=== PATIENT | female | born 1960 | race Caucasian/White ===

== ENCOUNTER 2023-12-29 17:08 | Inpatient (IN) | payer OTHER ==
[2023-12-29] MEDS: methylPREDNISolone SOD SUCCI 125 MG/2 ML VIAL IV STA (17:42)
[2023-12-29 18:02] LABS: Basophils % (A) 1 %; Eosinophils % (A) 0 %; HCT 47.5 % (34.0-46.0); HGB 15.3 gm/dL (11.4-16.0); Lymphocytes # (A) 1.5 k/uL (1.0-4.8); Lymphocytes % (A) 22 %; MCHC 32.2 g/dL (31.0-37.0); MCV 86.9 fL (80.0-100.0); Monocytes # (A) 0.4 k/uL (0-1.0); Monocytes % (A) 6 %; Neutrophils # (A) 4.8 k/uL (1.3-7.7); Neutrophils % (A) 69 %; Platelet Count 297 k/uL (150-450); RBC 5.47 m/uL (3.80-5.40); RDW 12.3 % (11.5-15.5); WBC 6.9 k/uL (3.8-10.6)
[2023-12-29] MEDS: IPRATROPIUM 0.5 MG/2.5 ML NEBU INHALATION STA (18:20)
[2023-12-29] MEDS: ALBUTEROL NEBULIZED 2.5 MG/3 ML INHALATION STA (18:20)
--- NOTE | 2023-12-29 18:24 | ED ---
General Adult HPI - General Chief complaint: Shortness of Breath Stated complaint: SOB Time Seen by Provider: 12/29/23 17:25 Source: patient, RN notes reviewed, old records reviewed Mode of arrival: ambulatory Limitations: no limitations - History of Present Illness Initial comments: This is a 63-year-old female who presents to the emergency department complaining of difficulty breathing. Patient states she went to see her primary medical care doctor today and he sent her in because her O2 sat was 88-89. Patient states she has been a smoker for many years but quit 2 weeks ago. Patient denies any chest pain or palpitations. Patient denies any fevers chills. Patient denies any increased cough. Patient denies any back pain. Patient has abdominal pain patient has nausea vomiting diarrhea. Patient denies lightheadedness or dizziness. Patient denies any swelling to the calf or calf tenderness - Related Data Allergies Allergy/AdvReac Type Severity Reaction Status Date / Time No Known Allergies Allergy Verified 12/29/23 17:13 Review of Systems ROS Statement: Those systems with pertinent positive or pertinent negative responses have been documented in the HPI. ROS Other: All systems not noted in ROS Statement are negative. Past Medical History Past Medical History: COPD History of Any Multi-Drug Resistant Organisms: None Reported Past Surgical History: Hysterectomy Smoking Status: Former smoker Past Alcohol Use History: None Reported Past Drug Use History: None Reported General Exam - General Exam Comments Initial Comments: GENERAL: Patient is well-developed and well-nourished. Patient is nontoxic and well- hydrated and is in mild distress. ENT: Neck is soft and supple. No significant lymphadenopathy is noted. Oropharynx is clear. Moist mucous membranes. Neck has full range of motion without eliciting any pain. EYES: The sclera were anicteric and conjunctiva were pink and moist. Extraocular movements were intact and pupils were equal round and reactive to light. Eyelids were unremarkable. PULMONARY: Decreased breath sounds CARDIOVASCULAR: There is a regular rate and rhythm without any murmurs gallops or rubs. ABDOMEN: Soft and nontender with normal bowel sounds. No palpable organomegaly was noted. There is no palpable pulsatile mass. SKIN: Skin is clear with no lesions or rashes and otherwise unremarkable. NEUROLOGIC: Patient is alert and oriented x3. Cranial nerves II through XII are grossly intact. Motor and sensory are also intact. Normal speech, volume and content. Symmetrical smile. MUSCULOSKELETAL: Normal extremities with adequate strength and full range of motion. No lower extremity swelling or edema. No calf tenderness. LYMPHATICS: No significant lymphadenopathy is noted PSYCHIATRIC: Normal psychiatric evaluation. Limitations: no limitations Course Vital Signs 12/29/23 12/29/23 12/29/23 17:09 17:22 17:26 Temperature 97.6 F Pulse Rate 85 78 Respiratory 16 20 Rate Blood Pressure 159/88 123/78 O2 Sat by Pulse 90 L 89 L 90 L Oximetry 12/29/23 12/29/23 12/29/23 18:20 18:26 18:32 Temperature Pulse Rate 73 71 75 Respiratory 18 Rate Blood Pressure 116/77 O2 Sat by Pulse 93 L Oximetry Medical Decision Making - Medical Decision Making EKG is interpreted by myself. EKG shows a sinus rhythm at 66 bpm parables 155 QRS is 85 QT interval 366 QTc is 380. Patient's EKG shows no ST segment elevation or depression. Was pt. sent in by a medical professional or institution (, PA, TITLE OFFICER, urgent care, hospital, or half-way...) When possible be specific @ -Doctor sent the patient to be admitted Did you speak to anyone other than the patient for history (EMS, parent, family, police, friend...)? What history was obtained from this source @ -No Did you review nursing and triage notes (agree or disagree)? Why? @ -I reviewed and agree with nursing and triage notes Were old charts reviewed (outside hosp., previous admission, EMS record, old EKG, old radiological studies, urgent care reports/EKG's, half-way records)? Report findings @ -I reviewed prior charts and prior lab work on this patient Differential Diagnosis (chest pain, altered mental status, abdominal pain women, abdominal pain men, vaginal bleeding, weakness, fever, dyspnea, syncope, headache, dizziness, GI bleed, back pain, seizure, CVA, palpatations, mental health, musculoskeletal)? @ -Differential Dyspnea: Coronary syndrome, arrhythmia, tamponade, asthma, COPD, pulmonary embolism, pneumonia, pneumothorax, pulmonary effusion, anaphylaxis, diabetic ketoacidosis, flailed chest, pulmonary contusion, diaphragmatic rupture, anemia, neuromuscular, this is not meant to be an all-inclusive list. EKG interpreted by me (3pts min.). @ -As above X-rays interpreted by me (1pt min.). @ -Chest x-ray shows no acute abnormality chest x-ray shows signs of COPD CT interpreted by me (1pt min.). @ -None done U/S interpreted by me (1pt. min.). @ -None done What testing was considered but not performed or refused? (CT, X-rays, U/S, labs)? Why? @ -None What meds were considered but not given or refused? Why? @ -None Did you discuss the management of the patient with other professionals (professionals i.e. , PA, TITLE OFFICER, lab, RT, psych nurse, social service agency director, cna gna, teacher, public relations officer, wrapper caser)? Give summary @ -I spoke with [facility] they agreed admit the patient admit the patient wrote admitting orders Was smoking cessation discussed for >3mins.? @ -No Was critical care preformed (if so, how long)? @ -No Were there social determinants of health that impacted care today? How? (Homelessness, low income, unemployed, alcoholism, drug addiction, transportation, low edu. Level, literacy, decrease access to med. care, [facility], rehab)? @ -No Was there de-escalation of care discussed even if they declined (Discuss DNR or withdrawal of care, Hospice)? DNR status @ -No What co-morbidities impacted this encounter? (DM, HTN, Smoking, COPD, CAD, Cancer, CVA, ARF, Chemo, Hep., AIDS, mental health diagnosis, sleep apnea, morbid obesity)? @ -None Was patient admitted / discharged? Hospital course, mention meds given and route, prescriptions, significant lab abnormalities, going to OR and other pertinent info. @ -Patient received a breathing treatment in the emergency department and 1 and route to the hospital. Patient also received steroids. Patient would be removed off of her oxygen and her pulse ox dropped down to 89 to 90%. Patient states she still feels somewhat short of breath. I spoke with [facility] they agreed to admit the patient admit the patient. Undiagnosed new problem with uncertain prognosis? @ -No Drug Therapy requiring intensive monitoring for toxicity (Heparin, Nitro, Insulin, Cardizem)? @ -No Were any procedures done? @ -No Diagnosis/symptom? @ -COPD exacerbation Acute, or Chronic, or Acute on Chronic? @ -Acute Uncomplicated (without systemic symptoms) or Complicated (systemic symptoms)? @ -Complicated Side effects of treatment? @ -No Exacerbation, Progression, or Severe Exacerbation? @ -No Poses a threat to life or bodily function? How? (Chest pain, USA, ID, pneumonia, PE, COPD, DKA, ARF, appy, cholecystitis, CVA, Diverticulitis, Homicidal, Suicidal, threat to staff... and all critical care pts) @ -Yes this can lead to hypoxia and endorgan dysfunction - Lab Data Result diagrams: 12/29/23 17:34 12/29/23 17:34 Lab Results 12/29/23 12/29/23 12/29/23 Range/Units 17:34 17:34 17:34 WBC 6.9 (3.8-10.6) k/uL RBC 5.47 H (3.80-5.40) m/uL Hgb 15.3 (11.4-16.0) gm/dL Hct 47.5 H (34.0-46.0) % MCV 86.9 (80.0-100.0) fL MCH 28.0 (25.0-35.0) pg MCHC 32.2 (31.0-37.0) g/dL RDW 12.3 (11.5-15.5) % Plt Count 297 (150-450) k/uL MPV 7.0 Neutrophils % 69 % Lymphocytes % 22 % Monocytes % 6 % Eosinophils % 0 % Basophils % 1 % Neutrophils # 4.8 (1.3-7.7) k/uL Lymphocytes # 1.5 (1.0-4.8) k/uL Monocytes # 0.4 (0-1.0) k/uL Eosinophils # 0.0 (0-0.7) k/uL Basophils # 0.0 (0-0.2) k/uL PT 10.4 (10.0-12.5) sec INR 0.9 (<1.2) APTT 23.9 (22.0-30.0) sec D-Dimer 0.29 (<0.60) mg/L FEU Sodium 140 (137-145) mmol/L Potassium 4.4 (3.5-5.1) mmol/L Chloride 110 H (98-107) mmol/L Carbon Dioxide 22 (22-30) mmol/L Anion Gap 8 mmol/L BUN 20 H (7-17) mg/dL Creatinine 0.67 (0.52-1.04) mg/dL Est GFR (CKD-EPI)AfAm >90 (>60 ml/min/1.73 sqM) Est GFR (CKD-EPI)NonAf >90 (>60 ml/min/1.73 sqM) Glucose 145 H (74-99) mg/dL Plasma Lactic Acid Dax (0.7-2.0) mmol/L Calcium 9.0 (8.4-10.2) mg/dL Total Bilirubin 0.8 (0.2-1.3) mg/dL AST 54 H (14-36) U/L ALT 75 H (4-34) U/L Alkaline Phosphatase 84 (38-126) U/L Troponin I (0.000-0.034) ng/mL Total Protein 6.5 (6.3-8.2) g/dL Albumin 3.7 (3.5-5.0) g/dL 12/29/23 12/29/23 Range/Units 17:34 17:34 WBC (3.8-10.6) k/uL RBC (3.80-5.40) m/uL Hgb (11.4-16.0) gm/dL Hct (34.0-46.0) % MCV (80.0-100.0) fL MCH (25.0-35.0) pg MCHC (31.0-37.0) g/dL RDW (11.5-15.5) % Plt Count (150-450) k/uL MPV Neutrophils % % Lymphocytes % % Monocytes % % Eosinophils % % Basophils % % Neutrophils # (1.3-7.7) k/uL Lymphocytes # (1.0-4.8) k/uL Monocytes # (0-1.0) k/uL Eosinophils # (0-0.7) k/uL Basophils # (0-0.2) k/uL PT (10.0-12.5) sec INR (<1.2) APTT (22.0-30.0) sec D-Dimer (<0.60) mg/L FEU Sodium (137-145) mmol/L Potassium (3.5-5.1) mmol/L Chloride (98-107) mmol/L Carbon Dioxide (22-30) mmol/L Anion Gap mmol/L BUN (7-17) mg/dL Creatinine (0.52-1.04) mg/dL Est GFR (CKD-EPI)AfAm (>60 ml/min/1.73 sqM) Est GFR (CKD-EPI)NonAf (>60 ml/min/1.73 sqM) Glucose (74-99) mg/dL Plasma Lactic Acid Dax 1.3 (0.7-2.0) mmol/L Calcium (8.4-10.2) mg/dL Total Bilirubin (0.2-1.3) mg/dL AST (14-36) U/L ALT (4-34) U/L Alkaline Phosphatase (38-126) U/L Troponin I <0.012 (0.000-0.034) ng/mL Total Protein (6.3-8.2) g/dL Albumin (3.5-5.0) g/dL Disposition Clinical Impression: Acute exacerbation of chronic obstructive pulmonary disease Disposition: ADMITTED IP TO THIS HOSP Referrals: Eze Oliveros MD [Primary Care Provider] - 1-2 days Time of Disposition: 18:45
[2023-12-29 18:26] LABS: INR 0.9 (<1.2); Partial Thromboplastin Time 23.9 sec (22.0-30.0); Prothrombin Time 10.4 sec (10.0-12.5)
[2023-12-29 18:28] LABS: ALT 75 U/L (4-34); AST 54 U/L (14-36); African American GFR (CKD) >90 (>60 ml/min/1.73 sqM); Albumin 3.7 g/dL (3.5-5.0); Alkaline Phosphatase 84 U/L (38-126); Anion Gap 8 mmol/L; Blood Urea Nitrogen 20 mg/dL (7-17); Carbon Dioxide 22 mmol/L (22-30); Chloride 110 mmol/L (98-107); Glucose 145 mg/dL (74-99); Non-African American GFR(CKD) >90 (>60 ml/min/1.73 sqM); Potassium 4.4 mmol/L (3.5-5.1); Sodium 140 mmol/L (137-145); Total Bilirubin 0.8 mg/dL (0.2-1.3); Total Protein 6.5 g/dL (6.3-8.2)
--- NOTE | 2023-12-29 18:37 | XR ---
EXAMINATION: XR chest 2V: 12/29/2023 6:20 PM CLINICAL INDICATION: difficulty breathing TECHNIQUE: PA and lateral views COMPARISON: CT neck: FINDINGS: The lungs are clear. The pleural spaces are negative. The cardiac silhouette is not enlarged. The remainder of the mediastinal silhouette is unremarkable. Thoracic spine dextrocurvature noted, could be positional. The skeletal structures and soft tissues a re negative for acute findings. IMPRESSION: No acute radiographic process.
[2023-12-29] MEDS ORDERED: NALOXONE 0.4 MG/ML 1 ML VIAL IVP PRN (18:45)
[2023-12-29] MEDS: AMOXIC-POT CLAV 875-125MG 1 EACH TAB PO SCH (20:32)
[2023-12-29] MEDS: IPRATROPIUM-ALBUTEROL 3 ML NEB INHALATION SCH (20:48)
[2023-12-29] MEDS: methylPREDNISolone SOD SUCCI 125 MG/2 ML VIAL IV SCH (23:31)
[2023-12-30 05:31] LABS: Glucose,Whole Blood 240 mg/dL (70-110)
[2023-12-30 11:24] LABS: Glucose,Whole Blood 178 mg/dL (70-110)
--- NOTE | 2023-12-30 11:40 | P.HPIM ---
History of Present Illness 63-year-old pleasant female came in with complaints of shortness of breath. Patient has not not been feeling well for about 2 weeks. Patient is found to be hypoxic with O2 sats of around 88% presently on 4 L of oxygen. Although patient does not have any significant wheezing because of which D-dimer was obtained which was within normal limits. Patient was admitted with systemic steroids inpatient treatments chest x-ray did not show any significant abnormality patient denies any chest pain at this time. Patient was having cough without any sputum production. Patient denies any calf pain. Patient quit smoking few years ago REVIEW OF SYSTEMS: CONSTITUTIONAL: No fever, no malaise, no fatigue. HEENT: No recent visual problems or hearing problems. Denied any sore throat. CARDIOVASCULAR: No chest pain, orthopnea, PND, no palpitations, no syncope. PULMONARY: No shortness of breath, no cough, no hemoptysis. GASTROINTESTINAL: No diarrhea, no nausea, no vomiting, no abdominal pain. NEUROLOGICAL: No headaches, no weakness, no numbness. HEMATOLOGICAL: Denies any bleeding or petechiae. GENITOURINARY: Denies any burning micturition, frequency, or urgency. MUSCULOSKELETAL/RHEUMATOLOGICAL: Denies any joint pain, swelling, or any muscle pain. ENDOCRINE: Denies any polyuria or polydipsia. The rest of the 14-point review of systems is negative. PHYSICAL EXAMINATION: GENERAL: The patient is alert and oriented x3, not in any acute distress. Well developed, well nourished. HEENT: Pupils are round and equally reacting to light. EOMI. No scleral icterus. No conjunctival pallor. Normocephalic, atraumatic. No pharyngeal erythema. No thyromegaly. CARDIOVASCULAR: S1 and S2 present. No murmurs, rubs, or gallops. PULMONARY: Fairly good air entry to bilateral lung crum without any significant wheezing ABDOMEN: Soft, nontender, nondistended, normoactive bowel sounds. No palpable organomegaly. MUSCULOSKELETAL: No joint swelling or deformity. EXTREMITIES: No cyanosis, clubbing, or pedal edema. NEUROLOGICAL: Gross neurological examination did not reveal any focal deficits. SKIN: No rashes. Assessment and plan -Acute hypoxic respiratory failure most probably secondary to COPD exacerbation. Continue systemic steroids inpatient treatments rule out pulmonary embolism with D-dimer monitor. -Possible bronchitis for which patient is on antibiotics no evidence of pneumonia GI prophylaxis Pepcid DVT prophylaxis: Lovenox Past Medical History Past Medical History: COPD History of Any Multi-Drug Resistant Organisms: None Reported Past Surgical History: Hysterectomy Additional Past Surgical History / Comment(s): bladder prolapse Past Anesthesia/Blood Transfusion Reactions: No Reported Reaction Smoking Status: Former smoker Medications and Allergies Home Medications Medication Instructions Recorded Confirmed Type No Known Home Medications 12/29/23 12/29/23 History Allergies Allergy/AdvReac Type Severity Reaction Status Date / Time No Known Allergies Allergy Verified 12/29/23 19:44 Physical Exam Vitals: Vital Signs Temp Pulse Pulse Resp BP BP Pulse Ox 12/30/23 11:07 20 12/30/23 09:14 70 12/30/23 08:57 68 94 L 12/30/23 07:57 18 85 L 12/30/23 07:47 98.8 F 80 19 163/92 88 L 12/30/23 02:00 98.0 F 71 20 126/72 90 L 12/29/23 23:00 98.1 F 95 20 168/90 90 L 12/29/23 22:51 88 16 121/79 91 L 12/29/23 21:45 75 16 137/81 90 L 12/29/23 21:14 91 L 12/29/23 20:56 95 12/29/23 20:48 82 12/29/23 20:34 98.1 F 12/29/23 20:02 78 16 137/99 93 L 12/29/23 19:27 76 16 146/82 92 L 12/29/23 18:32 75 12/29/23 18:26 71 18 116/77 93 L 12/29/23 18:20 73 12/29/23 17:26 90 L 12/29/23 17:22 78 20 123/78 89 L 12/29/23 17:09 97.6 F 85 16 159/88 90 L Intake and Output 12/29/23 12/30/23 12/30/23 22:59 06:59 14:59 Intake Total 1100 250 Balance 1100 250 Intake: Oral 1100 250 Other: Voiding Method Toilet Toilet # Voids 4 Weight 63.957 kg 63.957 kg Results CBC & Chem 7: 12/29/23 17:34 12/29/23 17:34 Labs: Abnormal Lab Results - Last 24 Hours (Table) 12/29/23 12/29/23 12/29/23 Range/Units 17:34 17:34 18:57 RBC 5.47 H (3.80-5.40) m/uL Hct 47.5 H (34.0-46.0) % Chloride 110 H (98-107) mmol/L BUN 20 H (7-17) mg/dL Glucose 145 H (74-99) mg/dL POC Glucose (mg/dL) (70-110) mg/dL AST 54 H (14-36) U/L ALT 75 H (4-34) U/L Influenza Type A (PCR) Detected A (Not Detectd) 12/30/23 12/30/23 Range/Units 05:26 11:23 RBC (3.80-5.40) m/uL Hct (34.0-46.0) % Chloride (98-107) mmol/L BUN (7-17) mg/dL Glucose (74-99) mg/dL POC Glucose (mg/dL) 240 H 178 H (70-110) mg/dL AST (14-36) U/L ALT (4-34) U/L Influenza Type A (PCR) (Not Detectd) Thrombosis Risk Factor Assmnt - Choose All That Apply Each Factor Represents 1 point: Abnormal pulmonary function (COPD) Each Risk Factor Represents 2 Points: Age 61-74 years Thrombosis Risk Factor Assessment Total Risk Factor Score: 3 Thrombosis Risk Factor Assessment Level: Moderate Risk
[2023-12-30] MEDS: FAMOTIDINE 20 MG TAB PO SCH (12:25)
[2023-12-30] MEDS: methylPREDNISolone SOD SUCCI 40 MG/ML 1 ML VIAL IV SCH (20:51)
[2023-12-31] MEDS: ENOXAPARIN 40 MG/0.4 ML SYRINGE SQ SCH (09:21)
[2023-12-31] MEDS: SYMBICORT 160-4.5 MCG INHALER INHALATION SCH (15:41)
[2023-12-31] MEDS: methylPREDNISolone SOD SUCCI 125 MG/2 ML VIAL IV SCH (17:12)
--- NOTE | 2023-12-31 17:28 | PN ---
PROGRESS NOTE DATE OF SERVICE: 12/31/2023 SUBJECTIVE: This is a 63-year-old woman who was admitted with shortness of breath and also acute flu infection and COPD exacerbation, she was closely monitored. No chest pain. No palpitations. No fever. OBJECTIVE: VITAL SIGNS: Pulse is 70. The blood pressure is 140/88, respirations 20. HEENT: Conjunctivae normal. NECK: No JVD. CARDIOVASCULAR: S1, S2. RESPIRATIONS: Bases. Few scattered rhonchi and crackles. ABDOMEN: Soft. NERVOUS SYSTEM: No focal deficit. LABORATORY DATA: Reviewed. ASSESSMENT: 1. Chronic obstructive pulmonary disease acute exacerbation. 2. Acute influenza A. 3. Acute tracheobronchitis. 4. History of hysterectomy. RECOMMENDATIONS AND DISCUSSION: This is a 63-year-old woman who presented with multiple complex medical issues, we will monitor the patient closely. Continue the current medications. Continue the antibiotics. I would recommend intensive bronchodilator treatment and bronchodilators. Pulmonary consultation. Guarded prognosis. Further recommendations to follow. See orders for further details. D-dimer has been checked and it is negative. MMODL / IJN: [id number] / [id number]
[2024-01-01 07:36] LABS: Basophils % (A) 0 %; Eosinophils % (A) 0 %; HCT 45.2 % (34.0-46.0); HGB 14.3 gm/dL (11.4-16.0); Lymphocytes % (A) 6 %; MCH 27.9 pg (25.0-35.0); MCHC 31.6 g/dL (31.0-37.0); MCV 88.2 fL (80.0-100.0); Monocytes # (A) 0.5 k/uL (0-1.0); Monocytes % (A) 3 %; Neutrophils # (A) 14.6 k/uL (1.3-7.7); Neutrophils % (A) 90 %; Platelet Count 412 k/uL (150-450); RBC 5.13 m/uL (3.80-5.40); RDW 12.8 % (11.5-15.5); WBC 16.2 k/uL (3.8-10.6)
[2024-01-01 07:46] LABS: African American GFR (CKD) >90 (>60 ml/min/1.73 sqM); Anion Gap 10 mmol/L; Blood Urea Nitrogen 23 mg/dL (7-17); Calcium 9.1 mg/dL (8.4-10.2); Carbon Dioxide 18 mmol/L (22-30); Chloride 109 mmol/L (98-107); Glucose 153 mg/dL (74-99); Non-African American GFR(CKD) >90 (>60 ml/min/1.73 sqM); Potassium 4.6 mmol/L (3.5-5.1); Sodium 137 mmol/L (137-145)
--- NOTE | 2024-01-01 11:52 | CT ---
EXAMINATION TYPE: CT angio chest DATE OF EXAM: 01/01/2024 11:40 AM COMPARISON: HISTORY: Acute hypoxic respiratory failure CT DLP: 294.2 mGycm Automated exposure control for dose reduction was used. CONTRAST: CTA scan of the thorax is performed with IV Contrast, patient injected with 65ml mL of Isovue 370, pu lmonary embolism protocol. 3-D postprocessing was performed.. FINDINGS: The lungs are clear of abnormal consolidative/airspace density or abnormal interstitial density. There is no pleural effusion, pleural thickening or pneumothorax. There is no mediastinal, hilar or axillary adenopathy. There is a tiny filling defect suspected in one of the subsegmental branches in the left lower lobe m edially possibly indicating a tiny embolus. No other filling defects are seen within the pulmonary ar [place] circulation. Limited scanning through the upper abdomen reveals no gross abnormality. No focal osseous lesions are seen. IMPRESSION: Tiny focal pulmonary embolus in one of the subsegmental branches in the left lower lobe medially with no other significant amount is seen.
--- NOTE | 2024-01-01 12:56 | P.CNPUL ---
History of Present Illness Consult date: 01/01/24 Reason for consult: dyspnea History of present illness: This is a 63-year-old female patient presented with worsening shortness of breath. The patient's has been symptomatic for almost 2 weeks. She was having increased dyspnea cough chest congestion chest tightness and wheezing. She has not seek any medical attention. She came into the hospital and she was found to be bronchospastic and wheezy. Furthermore, the patient tested positive for influenza A. She was quite hypoxic at time of admission and currently the patient is on 8 L of oxygen by nasal cannula with a pulse ox of 94%. I saw the patient on the medical floor and I was quite suspicious of her significant hypoxemia. The patient was given a CTA of the chest and the patient was found to have tiny focal pulmonary emboli and one of the subsegmental branches of the left lower lobe. The lungs are essentially clear. There was no consolidation or airspace disease. No mediastinal lymphadenopathy.The patient was started on anticoagulation with Eliquis. Meanwhile, she is still being treated with bronchodilators and steroids. Influenza a was still positive. Procalcitonin level was negative. Renal function was stable. White cell count was at 16.2 with hemoglobin of 14.3. The patient is a chronic smoker. Review of Systems CONSTITUTIONAL: No fever, no malaise, no fatigue. HEENT: No recent visual problems or hearing problems. Denied any sore throat. CARDIOVASCULAR: No chest pain, orthopnea, PND, no palpitations, no syncope. PULMONARY: No shortness of breath, no cough, no hemoptysis. GASTROINTESTINAL: No diarrhea, no nausea, no vomiting, no abdominal pain. NEUROLOGICAL: No headaches, no weakness, no numbness. HEMATOLOGICAL: Denies any bleeding or petechiae. GENITOURINARY: Denies any burning micturition, frequency, or urgency. MUSCULOSKELETAL/RHEUMATOLOGICAL: Denies any joint pain, swelling, or any muscle pain. ENDOCRINE: Denies any polyuria or polydipsia. The rest of the 14-point review of systems is negative Past Medical History Past Medical History: COPD History of Any Multi-Drug Resistant Organisms: None Reported Past Surgical History: Hysterectomy Additional Past Surgical History / Comment(s): bladder prolapse Past Anesthesia/Blood Transfusion Reactions: No Reported Reaction Smoking Status: Former smoker Medications and Allergies Home Medications Medication Instructions Recorded Confirmed Type No Known Home Medications 12/29/23 12/29/23 History Allergies Allergy/AdvReac Type Severity Reaction Status Date / Time No Known Allergies Allergy Verified 12/29/23 19:44 Physical Exam Vitals: Vital Signs Temp Pulse Pulse Resp BP Pulse Ox 01/01/24 08:28 91 L 01/01/24 07:24 98.0 F 67 18 156/84 94 L 01/01/24 01:13 97.6 F 79 15 156/86 91 L 12/31/23 20:00 98.0 F 74 16 132/74 89 L 12/31/23 16:32 74 12/31/23 16:17 70 12/31/23 13:57 97.8 F 74 19 154/82 90 L 12/31/23 12:33 72 12/31/23 12:20 70 Intake and Output 12/31/23 01/01/24 01/01/24 22:59 06:59 14:59 Output Total 1400 Balance -1400 Output: Urine 1400 Other: Voiding Method Toilet Toilet # Voids 1 GENERAL: The patient is alert and oriented x3, not in any acute distress. Well developed, well nourished. The patient is currently on 8 L of O2 nasal cannula. Breathing is nonlabored. Head exam was generally normal. There was no scleral icterus or corneal arcus. Mucous membranes were moist. HEENT: Pupils are round and equally reacting to light. EOMI. No scleral icterus. No conjunctival pallor. Normocephalic, atraumatic. No pharyngeal erythema. No thyromegaly. CARDIOVASCULAR: S1 and S2 present. No murmurs, rubs, or gallops. PULMONARY: Fairly good air entry to bilateral lung crum without any significant wheezing ABDOMEN: Soft, nontender, nondistended, normoactive bowel sounds. No palpable organomegaly. MUSCULOSKELETAL: No joint swelling or deformity. EXTREMITIES: No cyanosis, clubbing, or pedal edema. NEUROLOGICAL: Gross neurological examination did not reveal any focal deficits. Examination of the skin revealed no evidence of significant rashes, suspicious appearing nevi or other concerning lesions. Results - Laboratory Findings CBC and BMP: 01/01/24 06:55 01/01/24 06:55 PT/INR, D-dimer PT 10.4 sec (10.0-12.5) 12/29/23 17:34 INR 0.9 (<1.2) 12/29/23 17:34 D-Dimer 0.29 mg/L FEU (<0.60) 12/29/23 17:34 Abnormal lab findings: Abnormal Labs 12/29/23 12/29/23 12/29/23 17:34 17:34 18:57 WBC RBC 5.47 H Hct 47.5 H Neutrophils # Chloride 110 H Carbon Dioxide BUN 20 H Glucose 145 H POC Glucose (mg/dL) AST 54 H ALT 75 H Influenza Type A (PCR) Detected A 12/30/23 12/30/23 01/01/24 05:26 11:23 06:55 WBC 16.2 H RBC Hct Neutrophils # 14.6 H Chloride Carbon Dioxide BUN Glucose POC Glucose (mg/dL) 240 H 178 H AST ALT Influenza Type A (PCR) 01/01/24 06:55 WBC RBC Hct Neutrophils # Chloride 109 H Carbon Dioxide 18 L BUN 23 H Glucose 153 H POC Glucose (mg/dL) AST ALT Influenza Type A (PCR) - Diagnostic Findings Chest x-ray: image reviewed CT scan - chest: image reviewed Assessment and Plan Plan: Acute hypoxemic respiratory failure, multifactorial. The patient is currently on 8 L of oxygen by nasal cannula. Predominantly due to COPD exacerbation. There may be also component of pulmonary embolism as the patient was found to have a filling defect in the subsegmental branches of the left lower lobe. Acute COPD exacerbation Acute pulmonary embolism with a suspicious left lower lobe pulmonary artery devon ling defect Acute/subacute influenza A infection Shortness of breath secondary to above History of smoking Plan Continue bronchodilators and steroids Start the patient on anticoagulation with Eliquis 10 mg p.o. twice a day Obtain Doppler of the lower extremities No need for Tamiflu as the patient is outside the window for treatment of influenza A Smoking cessation counseling Will continue to follow
[2024-01-01] MEDS: APIXABAN 5 MG TAB PO SCH (14:06)
--- NOTE | 2024-01-01 15:31 | US ---
EXAMINATION TYPE: US venous doppler duplex LE BI DATE OF EXAM: 01/01/2024 12:57 PM COMPARISON: CTA 01/01/24 CLINICAL INDICATION: Female, 63 years old with history of Pulmonary embolism; PE on same day CTA, talha rtness of breath SIDE PERFORMED: Bilateral TECHNIQUE: The lower extremity deep venous system is examined utilizing real time linear array sonog shasta with graded compression, doppler sonography and color-flow sonography. VESSELS IMAGED: Common Femoral Vein Deep Femoral Vein Greater Saphenous Vein * Femoral Vein Popliteal Vein Small Saphenous Vein * Proximal Calf Veins (* superficial vessels) Right Leg: Negative for DVT Grayscale, color doppler, spectral doppler imaging performed of the deep veins of the lower extremiti es. There is normal flow, compressibility, vascular waveforms. IMPRESSION: No evidence of deep venous thrombosis
[2024-01-01] MEDS: FORMOTEROL FUMARATE 20 MCG/2 ML NEBU INHALATION SCH (16:10)
[2024-01-01] MEDS: BUDESONIDE 1 MG/2 ML NEBU INHALATION SCH (16:10)
--- NOTE | 2024-01-01 20:54 | P.CONS ---
History of Present Illness - Reason for Consult Consult date: 01/01/24 flu Requesting physician: Blas Mckinley - Chief Complaint Increasing shortness of breath x few days - History of Present Illness Patient is a 63-year-old female past medical history infection for COPD presenting to the hospital for evaluation of increasing shortness of breath patient symptom has been going on for the last few days and has been complaining of shortness of breath on minimal exertion even at rest patient denies having any chest pain did have very minimal cough no sputum production some runny nose but no other URI symptoms and denies high-grade fever patient apparently was eval by her primary care physician and the patient was noted to be hypoxic with O2 sats of 8829% and the patient was advised to go to the hospital on presentation to the hospital patient was afebrile and no fever have recorded subsequently patient was nontachycardic or hypotensive patient was hypoxic is currently on a 9 L high flow oxygen patient did have a white count of 6.9 on admission which is up to 16.2 today creatinine was normal and liver enzymes mildly elevated tested positive for influenza A patient did have a chest x-ray no acute pulmonary process CT angiogram of the chest focal pulm embolism in one of the subsegmental branches in the left lower lobe patient has been started on Solu-Medrol Rocephin Eliquis infectious was consulted for further management Review of Systems Positive point and negatives has been mentioned in the HPI, complete review of systems was performed and all other systems are negative Past Medical History Past Medical History: COPD History of Any Multi-Drug Resistant Organisms: None Reported Past Surgical History: Hysterectomy Additional Past Surgical History / Comment(s): bladder prolapse Past Anesthesia/Blood Transfusion Reactions: No Reported Reaction Smoking Status: Former smoker Medications and Allergies Home Medications Medication Instructions Recorded Confirmed Type Albuterol Inhaler [Ventolin Hfa 2 puff INHALATION Q6H PRN #1 each 01/05/24 Rx Inhaler] Apixaban Initiation Dose--VTE See Taper PO BID 30 Days #74 tab 01/05/24 Rx [Eliquis Initiation Dosing for VTE Treatment] Budesonide-Formot 160-4.5 Mcg 2 puff INHALATION BID #10.2 gm 01/05/24 Rx [Symbicort 160-4.5 Mcg Inhaler] Famotidine [Pepcid] 20 mg PO BID 15 Days #30 tab 01/05/24 Rx Ipratropium-Albuterol Nebulize 3 ml INHALATION RT-QID #100 each 01/05/24 Rx [Duoneb 0.5 mg-3 mg/3 ml Soln] Oseltamivir [Tamiflu] 75 mg PO Q12HR 1 Days #2 cap 01/05/24 Rx amLODIPine [Norvasc] 10 mg PO DAILY #30 tab 01/05/24 Rx predniSONE 10 mg PO DIRECTED #30 tab 01/05/24 Rx Allergies Allergy/AdvReac Type Severity Reaction Status Date / Time No Known Allergies Allergy Verified 12/29/23 19:44 Physical Exam Vitals: Vital Signs Temp Pulse Pulse Resp BP Pulse Ox 01/01/24 13:40 97.9 F 81 17 128/79 93 L 01/01/24 12:46 76 01/01/24 12:38 75 01/01/24 08:28 91 L 01/01/24 07:24 98.0 F 67 18 156/84 94 L 01/01/24 01:13 97.6 F 79 15 156/86 91 L 12/31/23 20:00 98.0 F 74 16 132/74 89 L 12/31/23 16:32 74 12/31/23 16:17 70 Intake and Output 12/31/23 01/01/24 01/01/24 22:59 06:59 14:59 Output Total 1400 Balance -1400 Output: Urine 1400 Other: Voiding Method Toilet Toilet # Voids 1 GENERAL DESCRIPTION: Middle-aged female lying in bed, no distress. No tachypnea or accessory muscle of respiration use. HEENT: Shows Pallor , no scleral icterus. Oral mucous membrane is dry. No pharyngeal erythema or thrush NECK: Trachea central, no thyromegaly. LUNGS: Unlabored breathing. Decreased intensity breath sounds no significant wheeze. HEART: S1, S2, regular rate and rhythm. No loud murmur ABDOMEN: Soft, no tenderness , guarding or rigidity, no organomegaly EXTREMITIES: No edema of feet. SKIN: No rash, no masses palpable. NEUROLOGICAL: The patient is awake, alert, oriented x3, mood and affect normal. Results CBC & Chem 7: 01/04/24 08:31 01/04/24 08:31 Labs: Abnormal Lab Results - Last 24 Hours (Table) 01/01/24 01/01/24 Range/Units 06:55 06:55 WBC 16.2 H (3.8-10.6) k/uL Neutrophils # 14.6 H (1.3-7.7) k/uL Chloride 109 H (98-107) mmol/L Carbon Dioxide 18 L (22-30) mmol/L BUN 23 H (7-17) mg/dL Glucose 153 H (74-99) mg/dL Assessment and Plan (1) Influenza Status: Acute Code(s): J11.1 - FLU DUE TO UNIDENTIFIED INFLUENZA VIRUS W OTH RESP MANIFEST SNOMED Code(s): 4658068 (2) Leukocytosis Status: Acute Code(s): D72.829 - ELEVATED WHITE BLOOD CELL COUNT, UNSPECIFIED SNOMED Code(s): 590166724 Plan: 1patient presented to hospital with increasing shortness of breath etiology is multifactorial in this patient has been diagnosed with a PE possible COPD exacerbation with bronchitis chest x-ray and CT angiogram of the chest did not show any acute infiltrate and procalcitonin is normal clinic suspicion is low for secondary bacterial pneumonia, antibiotic can be safely discontinued 2-patient with leukocytosis more likely steroid related as the patient had normal white count on admission 3-patient influenza more likely playing a part in some of her symptomatology as the patient is being admitted to the hospital should be treated irrespective of the duration of her symptoms and will start the patient on Tamiflu 75 mg p.o. twice a day for 5 days We will follow on clinical condition and cultures to further adjust medication if needed Thank you for this consultation we will follow the patient along with you Dictation was produced using [employer] dictation software. please excuse any grammatical, word or spelling errors. Time with Patient: Greater than 30
[2024-01-01] MEDS: OSELTAMIVIR 75 MG CAP PO SCH (21:32)
--- NOTE | 2024-01-01 23:28 | PN ---
PROGRESS NOTE DATE OF SERVICE: 01/01/2024 SUBJECTIVE: This is a 63-year-old woman was admitted with COPD exacerbation, also had acute influenza A. The patient also had increasing shortness of breath, and CT angio showed tiny focal pulmonary embolism on subsegmental branches in the left lobe medially with no other abnormalities. The patient is being closely monitored at this time. PAST MEDICAL HISTORY: Reviewed. REVIEW OF SYSTEMS: 14-point review is negative as mentioned. CURRENT MEDICATIONS: Reviewed. Include Tamiflu. PHYSICAL EXAMINATION: VITAL SIGNS: Pulse is 81, blood pressure n HEENT: Conjunctivae normal. NECK: No jugular venous distention. No carotid bruits. RESPIRATIONS: Bilateral few scattered rhonchi. ABDOMEN: Soft. NERVOUS SYSTEM: Nonfocal. LABORATORY DATA: Glucose 153, rest of labs are noted. ASSESSMENT: 1. Chronic obstructive pulmonary disease exacerbation with severe hypoxemia, acute hypoxic respiratory failure. 2. Acute pulmonary embolism, right lower lobe. 3. Acute influenza A. 4. Acute tracheobronchitis. 5. History OF hysterectomy. RECOMMENDATION: Continue current management, continue symptomatic treatment. Start IV heparin. Otherwise continue with steroids and bronchodilators. The patient will start Eliquis. Otherwise, continue to monitor. Continue with antibiotics. Will change the antibiotics to intravenous route, and I will also get Dr. Shipman for consult with influenza A. Prognosis guarded. Further recommendations to follow. MMODL / IJN: [id number] / MTDD
[2024-01-01] MEDS: ZOLPIDEM 5 MG TAB PO PRN (23:52)
[2024-01-02 08:27] LABS: Basophils # (A) 0.01 X 10*3/uL (0.00-0.10); Basophils % (A) 0.1 %; Eosinophils # (A) 0 X 10*3/uL (0.04-0.35); Eosinophils % (A) 0 %; HCT 41.9 % (37.2-46.3); HGB 13.8 g/dL (12.0-15.0); Lymphocytes # (A) 0.71 X 10*3/uL (0.90-5.00); MCH 27.8 pg (27.0-32.0); MCHC 32.9 g/dL (32.0-37.0); MCV 84.5 FL (80.0-97.0); Monocytes # (A) 0.48 X 10*3/uL (0.20-1.00); NRBC Per 100 WBC 0 X 10*3/uL (0.00-0.01); Neutrophils # (A) 10.59 X 10*3/uL (1.80-7.70); Neutrophils % (A) 89.1 %; Platelet Count 381 X 10*3/uL (140-440); RBC 4.96 X 10*6/uL (4.10-5.20); RDW 13.3 % (11.5-14.5); WBC 11.89 X 10*3/uL (4.50-10.00)
[2024-01-02 08:44] LABS: Calcium 8.8 mg/dL (8.7-10.3); Carbon Dioxide 19.8 mmol/L (21.6-31.8); Chloride 107 mmol/L (96-109); Glucose 177 mg/dL (70-110); Potassium 4.4 mmol/L (3.5-5.5); Sodium 138 mmol/L (135-145)
--- NOTE | 2024-01-02 12:20 | CA ---
Transthoracic Echo Report Name: Elizabeth Monroe Age: 63 Gender: F : 1960 Exam Date: 01/02/2024 08:22 Exam Location: [facility] Ht (in): 66 Wt (lb): 141 Ordering Physician: Blas Mckinley MD Attending/Referring Phys: General Practitioner Mala Gomez RDCS Procedure CPT: Indications: PE Cardiac Hx: Technical Quality: Contrast 1: Definity Total Dose (mL): 2 Contrast 2: Total Dose (mL): MEASUREMENTS (Male / Female) Normal Values 2D ECHO LV Diastolic Diameter PLAX 4.4 cm 4.2 - 5.9 / 3.9 - 5.3 cm LV Systolic Diameter PLAX 2.6 cm IVS Diastolic Thickness 0.9 cm 0.6 - 1.0 / 0.6 - 0.9 cm LVPW Diastolic Thickness 1.0 cm 0.6 - 1.0 / 0.6 - 0.9 cm LV Relative Wall Thickness 0.4 LVOT Diameter 2.0 cm Aortic Root Diameter 3.3 cm LA Systolic Diameter LX 3.6 cm 3.0 - 4.0 / 2.7 - 3.8 cm LA Volume 47.0 cm??? 18 - 58 / 22 - 52 cm??? LA Volume Index 27.2 cm???/m??? 16 - 28 cm???/m??? DOPPLER AV Peak Velocity 170.7 cm/s AV Peak Gradient 11.7 mmHg AV Mean Velocity 107.9 cm/s AV Mean Gradient 5.5 mmHg AV Velocity Time Integral 27.9 cm LVOT Peak Velocity 157.9 cm/s LVOT Peak Gradient 10.0 mmHg LVOT Velocity Time Integral 26.7 cm LVOT Stroke Volume 88.1 cm??? LVOT Stroke Volume Index 51.1 ml/m??? LVOT Cardiac Index 4075.3 cm???/min???m??? AV Area Cont Eq vti 3.2 cm??? AV Area Cont Eq pk 3.1 cm??? Mitral E Point Velocity 81.5 cm/s Mitral A Point Velocity 90.7 cm/s Mitral E to A Ratio 0.9 MV Deceleration Time 226.3 ms MV E' Velocity 9.2 cm/s Mitral E to MV E' Ratio 8.8 PV Peak Velocity 81.9 cm/s PV Peak Gradient 2.7 mmHg FINDINGS Left Ventricle Left ventricular ejection fraction is estimated at 55-60 %. Normal left ventricular wall motion. No obvious regional wall motion abnormalities.left ventricular cavity size normal. Right Ventricle Normal right ventricular size and function. Unable to estimate the right ventricular systolic pressure. Right Atrium Normal right atrial size. Left Atrium Normal left atrial size. Mitral Valve No mitral stenosis, regurgitation or prolapse. Aortic Valve No aortic valve stenosis or regurgitation.trileaflet aortic valve. Tricuspid Valve No tricuspid regurgitation.structurally normal tricuspid valve. Pulmonic Valve Pulmonic valve not well visualized. Pericardium No pericardial effusion. Aorta Normal size aortic root. CONCLUSIONS Technically difficult study. Definity ECHO contrast used for improved visualization of the endocardial borders (inadequate visualization of two or more contiguous segments). Normal left ventricle size and systolic function Limited Doppler study with no significant abnormalities Previewed by: Dr. Sydnie Avalos MD (Electronically Signed) Final Date: 02 January 2024 12:20
--- NOTE | 2024-01-02 13:07 | XR ---
EXAMINATION TYPE: XR chest 1V portable DATE OF EXAM: 01/02/2024 COMPARISON: 12/29/2023 HISTORY: Cough TECHNIQUE: Single frontal view of the chest is obtained. FINDINGS: There is no focal air space opacity, pleural effusion, or pneumothorax seen. The cardiac silhouette size is within normal limits. The osseous structures are intact. Elevated left hemidiaph ragm with findings suggestive of COPD. Diffuse osteopenia. Partial eventration right hemidiaphragm. IMPRESSION: No acute process.
--- NOTE | 2024-01-02 13:43 | PN ---
PROGRESS NOTE DATE OF SERVICE: 01/02/2024 This is a 63-year-old woman, who was admitted with COPD exacerbation and severe hypoxemia. The CT angio showed pulmonary embolism. Patient is on Eliquis as well. The patient is still requiring high-flow oxygen 91% on 8 L. A 2D echo with Doppler which was reviewed personally by me reported by Cardiology showed normal LV size and systolic function. RV size was normal. PAST MEDICAL HISTORY: Reviewed. REVIEW OF SYSTEMS: A 14-point review of systems is negative except as mentioned above. CURRENT MEDICATIONS: Reviewed, include Eliquis, dose and rest of medications reviewed. PHYSICAL EXAMINATION: VITAL SIGNS: Pulse is 80, blood pressure is 130/76, respirations 18. CHEST: Few scattered rhonchi. ABDOMEN: Soft. NERVOUS SYSTEM: Nonfocal. LABORATORY DATA: Reviewed. Hemoglobin 11.8. Rest of the labs are noted. ASSESSMENT: 1. Chronic obstructive pulmonary disease, acute exacerbation with severe hypoxemia with acute hypoxic respiratory failure. 2. Acute right pulmonary embolism, on Eliquis. 3. Acute influenza A. 4. Acute tracheobronchitis. 5. History of hysterectomy. RECOMMENDATION: Continue current management, continue symptomatic treatment. Otherwise, continue the bronchodilators. Procalcitonin is only 0.2. I would continue the antivirals and rest of the medications. Closely follow with Infectious Disease. Incentive spirometry. Guarded prognosis. Further recommendations to follow. See orders for details. MMODL / IJN: [id number] /
--- NOTE | 2024-01-02 16:26 | P.PN ---
Subjective Progress Note Date: 01/02/24 This is a 63-year-old female patient presented with worsening shortness of breath. The patient's has been symptomatic for almost 2 weeks. She was having increased dyspnea cough chest congestion chest tightness and wheezing. She has not seek any medical attention. She came into the hospital and she was found to be bronchospastic and wheezy. Furthermore, the patient tested positive for influenza A. She was quite hypoxic at time of admission and currently the patient is on 8 L of oxygen by nasal cannula with a pulse ox of 94%. I saw the patient on the medical floor and I was quite suspicious of her significant hypoxemia. The patient was given a CTA of the chest and the patient was found to have tiny focal pulmonary emboli and one of the subsegmental branches of the left lower lobe. The lungs are essentially clear. There was no consolidation or airspace disease. No mediastinal lymphadenopathy.The patient was started on anticoagulation with Eliquis. Meanwhile, she is still being treated with bronchodilators and steroids. Influenza a was still positive. Procalcitonin level was negative. Renal function was stable. White cell count was at 16.2 with hemoglobin of 14.3. The patient is a chronic smoker. The patient is seen today January 02, 2024 in follow-up on the regular medical floor. She is currently resting in bed. Awake and alert in no acute distress. She is still quite fatigued. Dyspneic with conversation. Dyspneic with minimal exertion. She is requiring 9 L high flow nasal cannula to maintain O2 saturation in the 90s. She is continued on Tamiflu. Her procalcitonin was negative at 0.02. She has been initiated on Eliquis for her tiny focal pulmonary embolus in the subsegmental branches of the left lower lobe. Dopplers revealed no evidence of DVT. Echocardiogram reveals preserved left ventricular systolic function with ejection fraction 55 to 60% normal right ventricular size and function. Follow-up chest x-ray reveals evidence of COPD but no acute p rocess. She remains on DuoNeb inhalations, Solu-Medrol, Pulmicort and Perforomist inhalations. White count 11.8. Hemoglobin 13.8. Sodium 138. Potassium 4.4. Bicarb 20. BUN 24. Creatinine 0.8. Objective - Vital Signs Vital signs: Vital Signs Temp 97.7 F 01/02/24 14:00 Pulse 72 01/02/24 15:38 Resp 19 01/02/24 14:00 BP 149/89 01/02/24 14:00 Pulse Ox 94 L 01/02/24 14:00 FiO2 Intake & Output 01/01/24 01/02/24 01/02/24 18:59 06:59 18:59 Intake Total 350 Output Total 1400 Balance -1050 Intake: Oral 350 Output: Urine 1400 Other: Voiding Method Toilet Toilet Toilet # Voids 3 1 1 - Exam GENERAL EXAM: Alert, 63-year-old female on 9 L high flow nasal cannula, comfortable in no apparent distress. HEAD: Normocephalic. EYES: Normal reaction of pupils, equal size. NOSE: Clear with pink turbinates. THROAT: No erythema or exudates. NECK: No masses, no JVD. CHEST: No chest wall deformity. LUNGS: Equal air entry with no crackles, wheeze, rhonchi or dullness. CVS: S1 and S2 normal with no audible murmur, regular rhythm. ABDOMEN: No hepatosplenomegaly, normal bowel sounds, no guarding or rigidity. SPINE: No scoliosis or deformity SKIN: No rashes CENTRAL NERVOUS SYSTEM: No focal deficits, tone is normal in all 4 extremities. EXTREMITIES: There is no peripheral edema. No clubbing, no cyanosis. Peripheral pulses are intact. - Labs CBC & Chem 7: 01/02/24 04:24 01/02/24 04:24 Labs: Abnormal Lab Results - Last 24 Hours (Table) 01/02/24 01/02/24 Range/Units 04:24 04:24 WBC 11.89 H (4.50-10.00) X 10*3/uL MPV 9.0 L (9.5-12.2) FL Immature Gran # 0.10 H (0.00-0.04) X 10*3/uL Neutrophils # 10.59 H (1.80-7.70) X 10*3/uL Lymphocytes # 0.71 L (0.90-5.00) X 10*3/uL Eosinophils # 0 L (0.04-0.35) X 10*3/uL Carbon Dioxide 19.8 L (21.6-31.8) mmol/L BUN/Creatinine Ratio 30.00 H (12.00-20.00) Ratio Glucose 177 H (70-110) mg/dL Assessment and Plan Assessment: Acute hypoxemic respiratory failure, multifactorial. The patient is currently on 9 L of oxygen by nasal cannula. Predominantly due to COPD exacerbation. There may be also component of pulmonary embolism as the patient was found to have a filling defect in the subsegmental branches of the left lower lobe. Currently on Eliquis Acute COPD exacerbation Acute pulmonary embolism with a suspicious left lower lobe pulmonary artery filling defect Acute/subacute influenza A infection Shortness of breath secondary to above History of smoking Plan: The patient was seen and evaluated Present medications reviewed Clear lower extremities negative for DVT Continued on Eliquis Continued on Tamiflu Continue on bronchodilators and steroids Titrate down the FiO2 as tolerated We will continue to follow I have personally seen and examined the patient, performed the documentation and the assessment and plan as written. Number of minutes spent on the visit: 10.
--- NOTE | 2024-01-02 18:01 | P.PN ---
Subjective Progress Note Date: 01/02/24 Principal diagnosis: Reason for follow-up is acute influenza A Patient is a 63-year-old female past medical history infection for COPD presenting to the hospital for evaluation of increasing shortness of breath, patient tested positive for influenza A and CT was suggestive of PE. On today's visit that is 01/02/2024,the patient denies any fever or any chills, patient is breathing slightly comfortably however still requiring 9 L high flow oxygen patient denies having any chest pain or cough no nausea vomiting abdominal pain or diarrhea. Patient white count is down to 11.89, creatinine 0.8 procalcitonin 0.02 Objective - Vital Signs Vital signs: Vital Signs Temp 97.7 F 01/02/24 08:00 Pulse 84 01/02/24 12:00 Resp 18 01/02/24 09:11 BP 131/75 01/02/24 08:00 Pulse Ox 97 01/02/24 08:00 FiO2 Intake & Output 01/01/24 01/02/24 01/02/24 18:59 06:59 18:59 Intake Total 350 Output Total 1400 Balance -1050 Intake: Oral 350 Output: Urine 1400 Other: Voiding Method Toilet Toilet Toilet # Voids 3 1 1 - Exam GENERAL DESCRIPTION: Middle-aged female up in bed in no distress RESPIRATORY SYSTEM: Unlabored breathing , decreased breath sounds at bases HEART: S1 S2 regular rate and rhythm , ABDOMEN: Soft , no tenderness EXTREMITIES: No edema feet - Labs CBC & Chem 7: 01/02/24 04:24 01/02/24 04:24 Labs: Abnormal Lab Results - Last 24 Hours (Table) 01/02/24 01/02/24 Range/Units 04:24 04:24 WBC 11.89 H (4.50-10.00) X 10*3/uL MPV 9.0 L (9.5-12.2) FL Immature Gran # 0.10 H (0.00-0.04) X 10*3/uL Neutrophils # 10.59 H (1.80-7.70) X 10*3/uL Lymphocytes # 0.71 L (0.90-5.00) X 10*3/uL Eosinophils # 0 L (0.04-0.35) X 10*3/uL Carbon Dioxide 19.8 L (21.6-31.8) mmol/L BUN/Creatinine Ratio 30.00 H (12.00-20.00) Ratio Glucose 177 H (70-110) mg/dL Assessment and Plan (1) Influenza Current Visit: Yes Status: Acute Code(s): J11.1 - FLU DUE TO UNIDENTIFIED INFLUENZA VIRUS W OTH RESP MANIFEST SNOMED Code(s): 1839953 Plan: 1patient presented to hospital with increasing shortness of breath etiology is multifactorial in this patient has been diagnosed with a PE possible COPD exacerbation with bronchitis chest x-ray and CT angiogram of the chest did not show any acute infiltrate and procalcitonin is normal clinic suspicion is low for secondary bacterial pneumonia, 2-patient with leukocytosis more likely steroid related as the patient had normal white count on admission the patient white count is trending down 3-patient to continue with the Tamiflu for influenza A Dictation was produced using [employer] dictation software. please excuse any grammatical, word or spelling errors. Time with Patient: Less than 30
[2024-01-03 08:27] LABS: Basophils # (A) 0.02 X 10*3/uL (0.00-0.10); Basophils % (A) 0.2 %; Eosinophils # (A) 0 X 10*3/uL (0.04-0.35); Eosinophils % (A) 0 %; HCT 41.6 % (37.2-46.3); Lymphocytes # (A) 0.75 X 10*3/uL (0.90-5.00); Lymphocytes % (A) 6.3 %; MCH 28.3 pg (27.0-32.0); MCHC 33.7 g/dL (32.0-37.0); Monocytes # (A) 0.47 X 10*3/uL (0.20-1.00); Monocytes % (A) 3.9 %; NRBC Per 100 WBC 0 X 10*3/uL (0.00-0.01); Neutrophils # (A) 10.56 X 10*3/uL (1.80-7.70); Neutrophils % (A) 88.2 %; Platelet Count 376 X 10*3/uL (140-440); RBC 4.95 X 10*6/uL (4.10-5.20); RDW 13.2 % (11.5-14.5); WBC 11.97 X 10*3/uL (4.50-10.00)
[2024-01-03 08:51] LABS: BUN/Creat Ratio 35.14 Ratio (12.00-20.00); Blood Urea Nitrogen 24.6 mg/dL (9.0-27.0); Calcium 8.7 mg/dL (8.7-10.3); Carbon Dioxide 21.1 mmol/L (21.6-31.8); Chloride 107 mmol/L (96-109); Glucose 169 mg/dL (70-110); Potassium 4.8 mmol/L (3.5-5.5); Sodium 139 mmol/L (135-145)
--- NOTE | 2024-01-03 15:06 | P.PN ---
Subjective Progress Note Date: 01/03/24 This is a 63-year-old female patient presented with worsening shortness of breath. The patient's has been symptomatic for almost 2 weeks. She was having increased dyspnea cough chest congestion chest tightness and wheezing. She has not seek any medical attention. She came into the hospital and she was found to be bronchospastic and wheezy. Furthermore, the patient tested positive for influenza A. She was quite hypoxic at time of admission and currently the patient is on 8 L of oxygen by nasal cannula with a pulse ox of 94%. I saw the patient on the medical floor and I was quite suspicious of her significant hypoxemia. The patient was given a CTA of the chest and the patient was found to have tiny focal pulmonary emboli and one of the subsegmental branches of the left lower lobe. The lungs are essentially clear. There was no consolidation or airspace disease. No mediastinal lymphadenopathy.The patient was started on anticoagulation with Eliquis. Meanwhile, she is still being treated with bronchodilators and steroids. Influenza a was still positive. Procalcitonin level was negative. Renal function was stable. White cell count was at 16.2 with hemoglobin of 14.3. The patient is a chronic smoker. The patient is seen today January 02, 2024 in follow-up on the regular medical floor. She is currently resting in bed. Awake and alert in no acute distress. She is still quite fatigued. Dyspneic with conversation. Dyspneic with minimal exertion. She is requiring 9 L high flow nasal cannula to maintain O2 saturation in the 90s. She is continued on Tamiflu. Her procalcitonin was negative at 0.02. She has been initiated on Eliquis for her tiny focal pulmonary embolus in the subsegmental branches of the left lower lobe. Dopplers revealed no evidence of DVT. Echocardiogram reveals preserved left ventricular systolic function with ejection fraction 55 to 60% normal right ventricular size and function. Follow-up chest x-ray reveals evidence of COPD but no acute p rocess. She remains on DuoNeb inhalations, Solu-Medrol, Pulmicort and Perforomist inhalations. White count 11.8. Hemoglobin 13.8. Sodium 138. Potassium 4.4. Bicarb 20. BUN 24. Creatinine 0.8. The patient is seen today January 03, 2024 in follow-up on the regular medical floor. She is sitting up in bed. Awake and alert in no acute distress. She is maintaining good O2 saturations in the 90s on 7 L high flow nasal cannula. She is continued on Tamiflu, bronchodilators, steroids. Anticoagulated with Eliquis. White count 11.9. Hemoglobin 14.0. Platelets 376. Sodium 139. Potassium 4.8. Bicarb 21. BUN 25. Creatinine 0.7. Glucose 169. Procalcitonin negative x 2. Objective - Vital Signs Vital signs: Vital Signs Temp 97.5 F L 01/03/24 13:21 Pulse 91 01/03/24 13:21 Resp 19 01/03/24 13:21 BP 147/78 01/03/24 13:21 Pulse Ox 89 L 01/03/24 13:21 FiO2 Intake & Output 01/02/24 01/03/24 01/03/24 18:59 06:59 18:59 Intake Total 600 400 Output Total 1400 Balance -800 400 Intake: Oral 600 400 Output: Urine 1400 Other: Voiding Method Toilet Toilet Toilet # Voids 2 1 1 - Exam GENERAL EXAM: Alert, 63-year-old female sitting up in bed, on 7 L high flow nasal cannula, comfortable in no apparent distress. HEAD: Normocephalic. EYES: Normal reaction of pupils, equal size. NOSE: Clear with pink turbinates. THROAT: No erythema or exudates. NECK: No masses, no JVD. CHEST: No chest wall deformity. LUNGS: Equal air entry with no crackles, wheeze, rhonchi or dullness. CVS: S1 and S2 normal with no audible murmur, regular rhythm. ABDOMEN: No hepatosplenomegaly, normal bowel sounds, no guarding or rigidity. SPINE: No scoliosis or deformity SKIN: No rashes CENTRAL NERVOUS SYSTEM: No focal deficits, tone is normal in all 4 extremities. EXTREMITIES: There is no peripheral edema. No clubbing, no cyanosis. Peripheral pulses are intact. - Labs CBC & Chem 7: 01/03/24 05:19 01/03/24 05:19 Labs: Abnormal Lab Results - Last 24 Hours (Table) 01/03/24 01/03/24 Range/Units 05:19 05:19 WBC 11.97 H (4.50-10.00) X 10*3/uL MPV 9.0 L (9.5-12.2) FL Immature Gran # 0.17 H (0.00-0.04) X 10*3/uL Neutrophils # 10.56 H (1.80-7.70) X 10*3/uL Lymphocytes # 0.75 L (0.90-5.00) X 10*3/uL Eosinophils # 0 L (0.04-0.35) X 10*3/uL Carbon Dioxide 21.1 L (21.6-31.8) mmol/L BUN/Creatinine Ratio 35.14 H (12.00-20.00) Ratio Glucose 169 H (70-110) mg/dL Assessment and Plan Assessment: Acute hypoxemic respiratory failure, multifactorial. The patient is currently on 7 L of oxygen by nasal cannula. Predominantly due to COPD exacerbation. There may be also component of pulmonary embolism as the patient was found to have a filling defect in the subsegmental branches of the left lower lobe. Currently on Eliquis Acute COPD exacerbation Acute pulmonary embolism with a suspicious left lower lobe pulmonary artery filling defect Acute/subacute influenza A infection Shortness of breath secondary to above History of smoking Plan: The patient was seen and evaluated Medications and labs reviewed Currently on 7 L high flow nasal cannula Continue the current treatment plan Titrate down the FiO2 as tolerated We will continue to follow I have personally seen and examined the patient, performed the documentation and the assessment and plan as written. Number of minutes spent on the visit: 10.
[2024-01-03] MEDS: amLODIPine 10 MG TAB PO SCH (15:07)
--- NOTE | 2024-01-03 15:27 | P.PN ---
Subjective Progress Note Date: 01/03/24 Principal diagnosis: Reason for follow-up is acute influenza A Patient is a 63-year-old female past medical history infection for COPD presenting to the hospital for evaluation of increasing shortness of breath, patient tested positive for influenza A and CT was suggestive of PE. On today's visit that is 01/03/2024,the patient remains to be afebrile, patient is on 7 L nasal cannula supplemental oxygen and still complaining of shortness of breath on minimal exertion, no chest pain or cough.Patient denies having any nausea or vomiting, no abdominal pain and no diarrhea has been reported. Patient white count is 11.97, creatinine 0.7 Objective - Vital Signs Vital signs: Vital Signs Temp 97.5 F L 01/03/24 13:21 Pulse 91 01/03/24 13:21 Resp 19 01/03/24 13:21 BP 147/78 01/03/24 13:21 Pulse Ox 89 L 01/03/24 13:21 FiO2 Intake & Output 01/02/24 01/03/24 01/03/24 18:59 06:59 18:59 Intake Total 600 400 Output Total 1400 Balance -800 400 Intake: Oral 600 400 Output: Urine 1400 Other: Voiding Method Toilet Toilet Toilet # Voids 2 1 1 - Exam GENERAL DESCRIPTION: Middle-aged female up in bed in no distress RESPIRATORY SYSTEM: Unlabored breathing , decreased breath sounds at bases HEART: S1 S2 regular rate and rhythm , ABDOMEN: Soft , no tenderness EXTREMITIES: No edema feet - Labs CBC & Chem 7: 01/03/24 05:19 01/03/24 05:19 Labs: Abnormal Lab Results - Last 24 Hours (Table) 01/03/24 01/03/24 Range/Units 05:19 05:19 WBC 11.97 H (4.50-10.00) X 10*3/uL MPV 9.0 L (9.5-12.2) FL Immature Gran # 0.17 H (0.00-0.04) X 10*3/uL Neutrophils # 10.56 H (1.80-7.70) X 10*3/uL Lymphocytes # 0.75 L (0.90-5.00) X 10*3/uL Eosinophils # 0 L (0.04-0.35) X 10*3/uL Carbon Dioxide 21.1 L (21.6-31.8) mmol/L BUN/Creatinine Ratio 35.14 H (12.00-20.00) Ratio Glucose 169 H (70-110) mg/dL Assessment and Plan (1) Leukocytosis Current Visit: Yes Status: Acute Code(s): D72.829 - ELEVATED WHITE BLOOD CELL COUNT, UNSPECIFIED SNOMED Code(s): 511980286 (2) Influenza Current Visit: Yes Status: Acute Code(s): J11.1 - FLU DUE TO UNIDENTIFIED INFLUENZA VIRUS W OTH RESP MANIFEST SNOMED Code(s): 4085175 Plan: 1patient presented to hospital with increasing shortness of breath etiology is multifactorial in this patient has been diagnosed with a PE possible COPD exacerbation with bronchitis chest x-ray and CT angiogram of the chest did not show any acute infiltrate and procalcitonin is normal clinic suspicion is low for secondary bacterial pneumonia, antibiotic can be safely discontinued 2-patient with leukocytosis more likely steroid related and will monitor closely 3-patient influenza continue with Tamiflu 75 mg p.o. twice a day for 5 days Dictation was produced using [employer] dictation software. please excuse any grammatical, word or spelling errors. Time with Patient: Less than 30
--- NOTE | 2024-01-03 20:23 | PN ---
PROGRESS NOTE DATE OF SERVICE: 01/03/2024 SUBJECTIVE: This is a 63-year-old woman, who was admitted with severe COPD acute exacerbation, severely hypoxemic, still the patient is on 7 L oxygen. The patient also had a pulmonary embolism, mostly on the right side. The patient is on blood thinners. Chest x-ray showed increased bronchovascular markings. I do not think the patient is using incentive spirometry on the right. The patient is on extensive bronchodilators and steroids and multiple other medical issues. Multiple consultants are following the patient closely. Cultures are negative so far. PAST MEDICAL HISTORY: Reviewed. REVIEW OF SYSTEMS: A 14-point review is negative except as mentioned earlier. CURRENT MEDICATIONS: Reviewed include Solu-Medrol. PHYSICAL EXAMINATION: VITAL SIGNS: Pulse is 72, blood pressure is 162/90, respirations 24. HEENT: Conjunctivae normal. NECK: No JVD. CARDIOVASCULAR: S1, S2. RESPIRATIONS: Breath sounds diminished at the bases. Scattered rhonchi and crackles. ABDOMEN: Soft. NERVOUS SYSTEM: Nonfocal. LABORATORY DATA: Reviewed. ASSESSMENT: 1. Severe chronic obstructive pulmonary disease acute exacerbation with severe hypoxemia with acute hypoxemic respiratory failure. 2. Acute right pulmonary embolism, on Eliquis. 3. Acute influenza A. 4. Hypertension. 5. Acute tracheobronchitis. 6. History of hysterectomy. RECOMMENDATIONS AND DISCUSSION: Recommend to continue current medications, continue symptomatic treatment. We will initiate Norvasc to the current regimen. Otherwise, continue to monitor repeat labs. Continue the bronchodilators, incentive spirometry frequently. Guarded prognosis. Further recommendations to follow. MMODL / IJN: [id number] /
[2024-01-04 09:12] LABS: Basophils % (A) 0 %; Eosinophils % (A) 0 %; HGB 14.9 gm/dL (11.4-16.0); Lymphocytes # (A) 0.5 k/uL (1.0-4.8); Lymphocytes % (A) 6 %; MCH 28.4 pg (25.0-35.0); MCHC 32.4 g/dL (31.0-37.0); MCV 87.5 fL (80.0-100.0); Mean Platelet Volume 7.3; Monocytes # (A) 0.3 k/uL (0-1.0); Monocytes % (A) 3 %; Neutrophils # (A) 7.6 k/uL (1.3-7.7); Neutrophils % (A) 90 %; Platelet Count 365 k/uL (150-450); RBC 5.26 m/uL (3.80-5.40); WBC 8.5 k/uL (3.8-10.6)
[2024-01-04 09:17] LABS: African American GFR (CKD) >90 (>60 ml/min/1.73 sqM); Anion Gap 12 mmol/L; Blood Urea Nitrogen 31 mg/dL (7-17); Calcium 8.5 mg/dL (8.4-10.2); Carbon Dioxide 19 mmol/L (22-30); Chloride 105 mmol/L (98-107); Glucose 301 mg/dL (74-99); Non-African American GFR(CKD) 87 (>60 ml/min/1.73 sqM); Potassium 4.1 mmol/L (3.5-5.1); Sodium 136 mmol/L (137-145)
--- NOTE | 2024-01-04 13:44 | PN ---
PROGRESS NOTE DATE OF SERVICE: 01/04/2024 SUBJECTIVE: This is a 63-year-old woman, who was admitted with severe COPD and severe hypoxemia. Still on 7 L oxygen. The most recent chest x-ray, which I reviewed personally did not show any significant pneumonia. OBJECTIVE: VITAL SIGNS: On exam, pulse is 90, the blood pressure is 148/85, and respirations 20. CHEST: Few scattered rhonchi and crackles. ABDOMEN: Soft. NERVOUS SYSTEM: Nonfocal. LABORATORY DATA: Reviewed. Glucose 301. ASSESSMENT: 1. Severe chronic obstructive pulmonary disease, acute exacerbation, severe hypoxemia with acute hypoxemic respiratory failure, on 7 L of oxygen. 2. Acute right pulmonary embolism, on Eliquis. 3. Acute influenza A. 4. Hypertension. 5. Acute tracheobronchitis. 6. History of hysterectomy. RECOMMENDATIONS: Recommend to continue current management and continue symptomatic treatment. Otherwise, procalcitonin is consistently low. C-reactive protein is also negative. The cultures are negative, but I would recommend continue with steroids and bronchodilators, and continue to monitor. Further recommendations to follow. [address] L of oxygen per Dr[address] Hackett. MMODL / IJN: [id number] /
--- NOTE | 2024-01-04 14:37 | P.PN ---
Subjective Progress Note Date: 01/04/24 This is a 63-year-old female patient presented with worsening shortness of breath. The patient's has been symptomatic for almost 2 weeks. She was having increased dyspnea cough chest congestion chest tightness and wheezing. She has not seek any medical attention. She came into the hospital and she was found to be bronchospastic and wheezy. Furthermore, the patient tested positive for influenza A. She was quite hypoxic at time of admission and currently the patient is on 8 L of oxygen by nasal cannula with a pulse ox of 94%. I saw the patient on the medical floor and I was quite suspicious of her significant hypoxemia. The patient was given a CTA of the chest and the patient was found to have tiny focal pulmonary emboli and one of the subsegmental branches of the left lower lobe. The lungs are essentially clear. There was no consolidation or airspace disease. No mediastinal lymphadenopathy.The patient was started on anticoagulation with Eliquis. Meanwhile, she is still being treated with bronchodilators and steroids. Influenza a was still positive. Procalcitonin level was negative. Renal function was stable. White cell count was at 16.2 with hemoglobin of 14.3. The patient is a chronic smoker. The patient is seen today January 02, 2024 in follow-up on the regular medical floor. She is currently resting in bed. Awake and alert in no acute distress. She is still quite fatigued. Dyspneic with conversation. Dyspneic with minimal exertion. She is requiring 9 L high flow nasal cannula to maintain O2 saturation in the 90s. She is continued on Tamiflu. Her procalcitonin was negative at 0.02. She has been initiated on Eliquis for her tiny focal pulmonary embolus in the subsegmental branches of the left lower lobe. Dopplers revealed no evidence of DVT. Echocardiogram reveals preserved left ventricular systolic function with ejection fraction 55 to 60% normal right ventricular size and function. Follow-up chest x-ray reveals evidence of COPD but no acute p rocess. She remains on DuoNeb inhalations, Solu-Medrol, Pulmicort and Perforomist inhalations. White count 11.8. Hemoglobin 13.8. Sodium 138. Potassium 4.4. Bicarb 20. BUN 24. Creatinine 0.8. The patient is seen today January 03, 2024 in follow-up on the regular medical floor. She is sitting up in bed. Awake and alert in no acute distress. She is maintaining good O2 saturations in the 90s on 7 L high flow nasal cannula. She is continued on Tamiflu, bronchodilators, steroids. Anticoagulated with Eliquis. White count 11.9. Hemoglobin 14.0. Platelets 376. Sodium 139. Potassium 4.8. Bicarb 21. BUN 25. Creatinine 0.7. Glucose 169. Procalcitonin negative x 2. The patient is seen today January 04, 2024 in follow-up on the regular medical floor. She is awake and alert in no acute distress. Continuing to require high flow nasal cannula currently down to 5 L/min per nasal cannula. She is breathing easier today compared to yesterday. She is afebrile. Hemodynamically stable. White count 8.5. Hemoglobin 14.9. Platelets 365. Sodium 136. Potassium 4.1. Bicarb 19. BUN 31. Creatinine 0.74. Glucose 301. She remains on DuoNeb ventilations, Pulmicort and performing scintillations, Solu-Medrol. Continued on Tamiflu. Anticoagulated with Eliquis. Objective - Vital Signs Vital signs: Vital Signs Temp 98.4 F 01/04/24 07:43 Pulse 90 01/04/24 11:49 Resp 20 01/04/24 07:43 BP 148/85 01/04/24 07:43 Pulse Ox 91 L 01/04/24 11:49 FiO2 Intake & Output 01/03/24 01/04/24 01/04/24 18:59 06:59 18:59 Intake Total 600 120 Balance 600 120 Intake: Oral 600 120 Other: Voiding Method Toilet Toilet # Voids 3 1 - Exam GENERAL EXAM: Alert, 63-year-old female, on 5 L high flow nasal cannula, in no apparent distress. HEAD: Normocephalic. EYES: Normal reaction of pupils, equal size. NOSE: Clear with pink turbinates. THROAT: No erythema or exudates. NECK: No masses, no JVD. CHEST: No chest wall deformity. LUNGS: Equal air entry with few scattered rhonchi. CVS: S1 and S2 normal with no audible murmur, regular rhythm. ABDOMEN: No hepatosplenomegaly, normal bowel sounds, no guarding or rigidity. SPINE: No scoliosis or deformity SKIN: No rashes CENTRAL NERVOUS SYSTEM: No focal deficits, tone is normal in all 4 extremities. EXTREMITIES: There is no peripheral edema. Positive clubbing. Peripheral pulses are intact. - Labs CBC & Chem 7: 01/04/24 08:31 01/04/24 08:31 Labs: Abnormal Lab Results - Last 24 Hours (Table) 01/04/24 01/04/24 Range/Units 08:31 08:31 Lymphocytes # 0.5 L (1.0-4.8) k/uL Sodium 136 L (137-145) mmol/L Carbon Dioxide 19 L (22-30) mmol/L BUN 31 H (7-17) mg/dL Glucose 301 H (74-99) mg/dL Assessment and Plan Assessment: Acute hypoxemic respiratory failure, multifactorial. The patient is currently on 5 L of oxygen by nasal cannula. Predominantly due to COPD exacerbation. There may be also component of pulmonary embolism as the patient was found to have a filling defect in the subsegmental branches of the left lower lobe. Currently on Eliquis Acute COPD exacerbation Acute pulmonary embolism with a suspicious left lower lobe pulmonary artery filling defect Acute/subacute influenza A infection Shortness of breath secondary to above History of smoking Plan: The patient was seen and evaluated Medications and labs reviewed Hyperglycemia, steroids decrease Continue bronchodilators and Tamiflu Currently on 5 L high flow nasal cannula Titrate down the FiO2 as tolerated Increase her activity as tolerated We will continue to follow I have personally seen and examined the patient, performed the documentation and the assessment and plan as written. Number of minutes spent on the visit: 10.
[2024-01-04] MEDS: methylPREDNISolone SOD SUCCI 40 MG/ML 1 ML VIAL IV SCH (17:22)
--- NOTE | 2024-01-04 17:58 | P.PN ---
Subjective Progress Note Date: 01/04/24 Principal diagnosis: Reason for follow-up is acute influenza A Patient is a 63-year-old female past medical history infection for COPD presenting to the hospital for evaluation of increasing shortness of breath, patient tested positive for influenza A and CT was suggestive of PE. On today's visit that is 01/04/2024, the patient continues to be afebrile, the patient is on 5 L nasal cannula oxygen and breathing slightly comfortably today, the Pt denies having any chest pain or cough, the patient denies having any abdominal pain no vomiting or any diarrhea. Patient white count normalized to 8.5, creatinine 0.74 Objective - Vital Signs Vital signs: Vital Signs Temp 97.5 F L 01/04/24 14:00 Pulse 85 01/04/24 14:00 Resp 17 01/04/24 14:00 BP 124/78 01/04/24 14:00 Pulse Ox 93 L 01/04/24 14:00 FiO2 Intake & Output 01/03/24 01/04/24 01/04/24 18:59 06:59 18:59 Intake Total 600 120 Balance 600 120 Intake: Oral 600 120 Other: Voiding Method Toilet Toilet # Voids 3 1 - Exam GENERAL DESCRIPTION: Middle-aged female up in bed in no distress RESPIRATORY SYSTEM: Unlabored breathing , decreased breath sounds at bases HEART: S1 S2 regular rate and rhythm , ABDOMEN: Soft , no tenderness EXTREMITIES: No edema feet - Labs CBC & Chem 7: 01/04/24 08:31 01/04/24 08:31 Labs: Abnormal Lab Results - Last 24 Hours (Table) 01/04/24 01/04/24 Range/Units 08:31 08:31 Lymphocytes # 0.5 L (1.0-4.8) k/uL Sodium 136 L (137-145) mmol/L Carbon Dioxide 19 L (22-30) mmol/L BUN 31 H (7-17) mg/dL Glucose 301 H (74-99) mg/dL Assessment and Plan (1) Leukocytosis Current Visit: Yes Status: Acute Code(s): D72.829 - ELEVATED WHITE BLOOD CELL COUNT, UNSPECIFIED SNOMED Code(s): 084958390 (2) Influenza Current Visit: Yes Status: Acute Code(s): J11.1 - FLU DUE TO UNIDENTIFIED INFLUENZA VIRUS W OTH RESP MANIFEST SNOMED Code(s): 5953895 Plan: 1patient presented to hospital with increasing shortness of breath etiology is multifactorial in this patient has been diagnosed with a PE possible COPD exacerbation with bronchitis chest x-ray and CT angiogram of the chest did not show any acute infiltrate and procalcitonin is normal clinic suspicion is low for secondary bacterial pneumonia, antibiotic can be safely discontinued 2-patient with leukocytosis more likely steroid related and patient white count has normalized 3-patient influenza continue with Tamiflu 75 mg p.o. twice a day for 5 days patient slowly clinical improving and will monitor closely Dictation was produced using [employer] dictation software. please excuse any grammatical, word or spelling errors. Time with Patient: Less than 30
[2024-01-05 02:16] VITALS: RESP 16
[2024-01-05 08:41] VITALS: BP 144/85; TEMP 97.9
--- NOTE | 2024-01-05 10:55 | P.PN ---
Progress Note - Text Progress Note Date: 01/05/24 Patient will require nebulizer on discharge for DuoNeb treatments 4 times daily and as needed as well as 2 L of oxygen via nasal cannula to manage COPD. Prescription provided to case management working on discharge planning.
[2024-01-05 13:01] VITALS: PULSE 92
[2024-01-05 14:52] VITALS: BMI 22.7
--- NOTE | 2024-01-05 14:59 | P.PN ---
Subjective Progress Note Date: 01/05/24 Principal diagnosis: Reason for follow-up is acute influenza A Patient is a 63-year-old female past medical history infection for COPD presenting to the hospital for evaluation of increasing shortness of breath, patient tested positive for influenza A and CT was suggestive of PE. On today's visit that is 01/05/2024, Patient is afebrile patient is currently on 2 L nasal cannula oxygen and breathing more comfortably, the patient denies any chest pain or cough, the patient denies any nausea vomiting did not have any abdominal pain and no diarrhea. Patient white count normalized to 8.5, creatinine 0.74 Objective - Vital Signs Vital signs: Vital Signs Temp 97.9 F 01/05/24 08:00 Pulse 92 01/05/24 12:17 Resp 16 01/05/24 08:00 BP 144/85 01/05/24 08:00 Pulse Ox 88 L 01/05/24 10:45 FiO2 Intake & Output 01/04/24 01/05/24 01/05/24 18:59 06:59 18:59 Other: Voiding Method Toilet # Voids 3 2 - Exam GENERAL DESCRIPTION: Middle-aged female up in bed in no distress RESPIRATORY SYSTEM: Unlabored breathing , decreased breath sounds at bases HEART: S1 S2 regular rate and rhythm , ABDOMEN: Soft , no tenderness EXTREMITIES: No edema feet - Labs CBC & Chem 7: 01/04/24 08:31 01/04/24 08:31 Assessment and Plan (1) Leukocytosis Status: Acute Code(s): D72.829 - ELEVATED WHITE BLOOD CELL COUNT, UNSPECIFIED SNOMED Code(s): 245693443 (2) Influenza Status: Acute Code(s): J11.1 - FLU DUE TO UNIDENTIFIED INFLUENZA VIRUS W OTH RESP MANIFEST SNOMED Code(s): 7574047 Plan: 1patient presented to hospital with increasing shortness of breath etiology is multifactorial in this patient has been diagnosed with a PE possible COPD exacerbation with bronchitis chest x-ray and CT angiogram of the chest did not show any acute infiltrate and procalcitonin is normal clinic suspicion is low for secondary bacterial pneumonia, patient did well off antibiotic therapy during this admission 2-patient with leukocytosis more likely steroid related, the patient white count subsequent normalized 3-patient to finish a 5-day course of Tamiflu 75 mg p.o. twice a day and no need for antibiotics on discharge Dictation was produced using [employer] dictation software. please excuse any grammatical, word or spelling errors. Time with Patient: Less than 30
--- NOTE | 2024-01-05 15:42 | P.DS ---
Providers Date of admission: 12/29/23 18:47 Expected date of discharge: 01/05/24 Attending physician: Blas Mckinley Consults: 12/31/23 12:41 Consult Physician Routine Consulting Provider: Susan Alanis Consult Reason/Comments: COPD, Flu A Do you want consulting provider notified?: Yes 01/01/24 14:22 Consult Physician Routine Consulting Provider: Lupe Shipman Consult Reason/Comments: flu Do you want consulting provider notified?: Yes Primary care physician: Eze jermaine [facility] Course: Final diagnosis Severe chronic obstructive pulmonary disease, acute exacerbation with severe hypoxemia with acute hypoxic respiratory failure Acute right pulmonary embolism, started on Eliquis Acute influenza A infection Hypertension Acute tracheobronchitis Former smoker GI prophylaxis DVT prophylaxis Full code Discharge disposition Patient is being discharged in a stable condition with guarded prognosis to home. Patient will continue on 2 L via nasal cannula along with breathing treatments to manage COPD. patient will follow-up with Dr. Oliveros in the outpatient setting upon discharge. Patient is to continue with Tamiflu today to complete the course along with the prednisone taper and outpatient follow-up with pulmonary as scheduled. Total time taken is greater than 35 minutes. Hospital course This is a 63-year-old female who was recently admitted with increasing shortness of breath with COPD exacerbation with severe hypoxemia requiring high flow oxygen initially. Patient also noted to have a right acute pulmonary embolism started on IV heparin. Patient evaluated and monitored by infectious disease along with pulmonary as patient was also noted to have acute influenza A infection and started on Tamiflu. Patient was started on Eliquis and will continue on 10 mg twice daily for 1 week and then titrate down to 5 mg twice daily thereafter. Patient to follow-up with pulmonary outpatient. Patient has weaned FiO2 down to 2 L and will continue on 2 L on discharge to manage COPD. Instructed the patient to obtain a pulse oximeter and monitor readings for primary as well as pulmonary follow-up. Wean FiO2 as tolerated in the outpatient setting. Patient has been instructed to continue using incentive spirometer at least 10 times every hour while awake. Please refer to other consultation notes for further HPI. Currently no reports of chest pain, no worsening shortness of breath, or palpitations. Patient is afebrile. No reports of nausea or vomiting and patient is tolerating diet. Patient will be discharged home today. Guarded prognosis. Physical exam: Gen: This is a 63-year-old female who is awake, alert and oriented x 3, well- developed, well-nourished HEENT: Head is atraumatic, normocephalic. Pupils equal, round. Sclerae is [place]. NECK: Supple. No JVD. No lymphadenopathy. No thyromegaly. LUNGS: Diminished breath sounds bilaterally otherwise clear to auscultation. No wheezes or rhonchi. No intercostal retractions. HEART: S1, S2 are muffled ABDOMEN: Soft. Bowel sounds are present. No masses. No tenderness. EXTREMITIES: No pedal edema. No calf tenderness. NEUROLOGICAL: Patient is awake, alert and oriented x3. Cranial nerves 2 through 12 are grossly intact. Please refer to medication reconciliation sheet for a list of medications. The impression and plan of care has been dictated by Daylin Berg, Nurse Practitioner as directed. Dr. Elías MD I have performed a history and examination and MDM of this patient, discussed the same with the dictator, and agree with the dictator's assessment and plan as written ,documented as a scribe. Based on total visit time, I have performed more than 50% of the visit. Patient Condition at Discharge: Fair Plan - Discharge Summary Discharge Rx Participant: Yes New Discharge Prescriptions: New Apixaban Initiation Dose--VTE [Eliquis Initiation Dosing for VTE Treatment] See Taper PO BID 30 Days #74 tab predniSONE 10 mg PO DIRECTED #30 tab Budesonide-Formot 160-4.5 Mcg [Symbicort 160-4.5 Mcg Inhaler] 2 puff INHALATION BID #10.2 gm Ipratropium-Albuterol Nebulize [Duoneb 0.5 mg-3 mg/3 ml Soln] 3 ml INHALATION RT-QID #100 each amLODIPine [Norvasc] 10 mg PO DAILY #30 tab Famotidine [Pepcid] 20 mg PO BID 15 Days #30 tab Oseltamivir [Tamiflu] 75 mg PO Q12HR 1 Days #2 cap Albuterol Inhaler [Ventolin Hfa Inhaler] 2 puff INHALATION Q6H PRN #1 each PRN Reason: Shortness Of Breath Discharge Medication List Albuterol Inhaler [Ventolin Hfa Inhaler] 2 puff INHALATION Q6H PRN #1 each 01/05/24 [Rx] Apixaban Initiation Dose--VTE [Eliquis Initiation Dosing for VTE Treatment] See Taper PO BID 30 Days #74 tab 01/05/24 [Rx] Budesonide-Formot 160-4.5 Mcg [Symbicort 160-4.5 Mcg Inhaler] 2 puff INHALATION BID #10.2 gm 01/05/24 [Rx] Famotidine [Pepcid] 20 mg PO BID 15 Days #30 tab 01/05/24 [Rx] Ipratropium-Albuterol Nebulize [Duoneb 0.5 mg-3 mg/3 ml Soln] 3 ml INHALATION RT-QID #100 each 01/05/24 [Rx] Oseltamivir [Tamiflu] 75 mg PO Q12HR 1 Days #2 cap 01/05/24 [Rx] amLODIPine [Norvasc] 10 mg PO DAILY #30 tab 01/05/24 [Rx] predniSONE 10 mg PO DIRECTED #30 tab 01/05/24 [Rx] Follow up Appointment(s)/Referral(s): Caridad Hackett MD [STAFF PHYSICIAN] - 01/16/24 9:00 am [facility] [NON-STAFF] - As Needed (You will be responsible for $25-40 per visit.) [facility] [NON-STAFF] - As Needed (Nebulizer and Oxygen) Eze Oliveros MD [Primary Care Provider] - 01/11/24 2:30 pm Patient Instructions/Handouts: Influenza (DC) Activity/Diet/Wound Care/Special Instructions: Activity limited until follow-up Follow-up with primary care provider on discharge Continue with Eliquis 10 mg twice daily until 01/06/2021 and then titrate the dosing down to 5 mg twice daily thereafter on 01/08/2024 Follow-up with pulmonary in the next 1 to 2 weeks Continue using incentive spirometer at least 10 times every hour while awake Continue on a prednisone taper Continue with breathing inhalational treatments along with inhalers Continue with supplemental oxygen and monitor pulse ox saturations with a pulse oximeter and keep a diary of readings and titrate slowly to room air once tolerating with continued oxygen saturations above 92% Continue last dosing of Tamiflu today to complete the course Discharge Disposition: HOME SELF-CARE
--- NOTE | 2024-01-05 15:46 | P.PN ---
Subjective Progress Note Date: 01/05/24 This is a 63-year-old female patient presented with worsening shortness of breath. The patient's has been symptomatic for almost 2 weeks. She was having increased dyspnea cough chest congestion chest tightness and wheezing. She has not seek any medical attention. She came into the hospital and she was found to be bronchospastic and wheezy. Furthermore, the patient tested positive for influenza A. She was quite hypoxic at time of admission and currently the patient is on 8 L of oxygen by nasal cannula with a pulse ox of 94%. I saw the patient on the medical floor and I was quite suspicious of her significant hypoxemia. The patient was given a CTA of the chest and the patient was found to have tiny focal pulmonary emboli and one of the subsegmental branches of the left lower lobe. The lungs are essentially clear. There was no consolidation or airspace disease. No mediastinal lymphadenopathy.The patient was started on anticoagulation with Eliquis. Meanwhile, she is still being treated with bronchodilators and steroids. Influenza a was still positive. Procalcitonin level was negative. Renal function was stable. White cell count was at 16.2 with hemoglobin of 14.3. The patient is a chronic smoker. The patient is seen today January 02, 2024 in follow-up on the regular medical floor. She is currently resting in bed. Awake and alert in no acute distress. She is still quite fatigued. Dyspneic with conversation. Dyspneic with minimal exertion. She is requiring 9 L high flow nasal cannula to maintain O2 saturation in the 90s. She is continued on Tamiflu. Her procalcitonin was negative at 0.02. She has been initiated on Eliquis for her tiny focal pulmonary embolus in the subsegmental branches of the left lower lobe. Dopplers revealed no evidence of DVT. Echocardiogram reveals preserved left ventricular systolic function with ejection fraction 55 to 60% normal right ventricular size and function. Follow-up chest x-ray reveals evidence of COPD but no acute p rocess. She remains on DuoNeb inhalations, Solu-Medrol, Pulmicort and Perforomist inhalations. White count 11.8. Hemoglobin 13.8. Sodium 138. Potassium 4.4. Bicarb 20. BUN 24. Creatinine 0.8. The patient is seen today January 03, 2024 in follow-up on the regular medical floor. She is sitting up in bed. Awake and alert in no acute distress. She is maintaining good O2 saturations in the 90s on 7 L high flow nasal cannula. She is continued on Tamiflu, bronchodilators, steroids. Anticoagulated with Eliquis. White count 11.9. Hemoglobin 14.0. Platelets 376. Sodium 139. Potassium 4.8. Bicarb 21. BUN 25. Creatinine 0.7. Glucose 169. Procalcitonin negative x 2. The patient is seen today January 04, 2024 in follow-up on the regular medical floor. She is awake and alert in no acute distress. Continuing to require high flow nasal cannula currently down to 5 L/min per nasal cannula. She is breathing easier today compared to yesterday. She is afebrile. Hemodynamically stable. White count 8.5. Hemoglobin 14.9. Platelets 365. Sodium 136. Potassium 4.1. Bicarb 19. BUN 31. Creatinine 0.74. Glucose 301. She remains on DuoNeb ventilations, Pulmicort and performing scintillations, Solu-Medrol. Continued on Tamiflu. Anticoagulated with Eliquis. The patient is seen today January 05, 2024 in follow-up on the regular medical floor. She is awake and alert in no acute distress. Maintaining good O2 sat and is now on 2 L/min per nasal cannula. She does qualify for home oxygen on a 6-minute walk with O2 saturations in the 80s. She remains on bronchodilators, steroids. Continued on Tamiflu. Anticoagulated with Eliquis. No new labs today. Objective - Vital Signs Vital signs: Vital Signs Temp 97.9 F 01/05/24 08:00 Pulse 92 01/05/24 12:17 Resp 16 01/05/24 08:00 BP 144/85 01/05/24 08:00 Pulse Ox 88 L 01/05/24 10:45 FiO2 Intake & Output 01/04/24 01/05/24 01/05/24 18:59 06:59 18:59 Weight 63.957 kg Other: Voiding Method Toilet # Voids 3 2 - Exam GENERAL EXAM: Alert, pleasant 63-year-old female, on 2 L high flow nasal cannula, in no apparent distress. HEAD: Normocephalic. EYES: Normal reaction of pupils, equal size. NOSE: Clear with pink turbinates. THROAT: No erythema or exudates. NECK: No masses, no JVD. CHEST: No chest wall deformity. LUNGS: Equal air entry with few scattered rhonchi. CVS: S1 and S2 normal with no audible murmur, regular rhythm. ABDOMEN: No hepatosplenomegaly, normal bowel sounds, no guarding or rigidity. SPINE: No scoliosis or deformity SKIN: No rashes CENTRAL NERVOUS SYSTEM: No focal deficits, tone is normal in all 4 extremities. EXTREMITIES: There is no peripheral edema. Positive clubbing. Peripheral pulses are intact. - Labs CBC & Chem 7: 01/04/24 08:31 01/04/24 08:31 Assessment and Plan Assessment: Acute hypoxemic respiratory failure, multifactorial. The patient is currently on 2 L of oxygen by nasal cannula. Predominantly due to COPD exacerbation. There may be also component of pulmonary embolism as the patient was found to have a filling defect in the subsegmental branches of the left lower lobe. Currently on Eliquis Acute COPD exacerbation Acute pulmonary embolism with a suspicious left lower lobe pulmonary artery filling defect Acute/subacute influenza A infection Shortness of breath secondary to above History of smoking Plan: The patient was seen and evaluated Medications reviewed Cleared for discharge Qualifies for home oxygen Continue Symbicort, albuterol, DuoNeb inhalations Complete a prednisone taper Complete a course of Tamiflu Anticoagulated with Eliquis Follow-up in our office in 1 week I have personally seen and examined the patient, performed the documentation and the assessment and plan as written. Number of minutes spent on the visit: 10.
[2024-01-08] MEDS ORDERED: APIXABAN 5 MG TAB PO SCH (09:00)
== END 2024-01-05 14:17 | disposition home or self-care (01) | DRG 175 ==
LOC: EC 17:08 → 4SSUR 18:46 → OBSVTOIN 18:47 → 4SSUR 19:29
PROVIDERS: ADMIT Hospitalist; ATTEND Hospitalist
DX: I26.93 Single subsegmental thrombotic pulmonary embolism without acute cor pulmonale (principal); J96.01 Acute respiratory failure with hypoxia; J44.1 Chronic obstructive pulmonary disease with (acute) exacerbation; J44.0 Chronic obstructive pulmonary disease with (acute) lower respiratory infection; J10.1 Influenza due to other identified influenza virus with other respiratory manifestations; I10 Essential (primary) hypertension; J20.9 Acute bronchitis, unspecified; Z28.310 Unvaccinated for COVID-19; F17.200 Nicotine dependence, unspecified, uncomplicated; Z71.6 Tobacco abuse counseling
CPT/HCPCS: 36415; 71045; 71046; 71275; 80048; 80053; 83605; 84145; 84484; 85025; 85379; 85610; 85652; 85730; 86140; 87636; 93005; 93306; 93970; 94640; 94760; 96374; 99285